=== PATIENT | female | born 1990 | race Caucasian/White ===

== ENCOUNTER → 2018-06-11 | Outpatient (CLI) | payer MEDICARE, MEDICAID ==
[~2018-06-11] MED LIST: ACET-2146 PO; CALC1TAB24 PO; CETI-169 PO; CHOL400C10 PO; GUAI-244 PO; HYDR-653 PO; IBUP-56 PO; NAPR220T86 PO; OXYM30MI5 NS
--- NOTE | 2018-06-11 12:52 | RADIOLOGY IMAGING REPORT ---
FACILITY: [facility] [place] PATIENT NAME: Abigail Wray : 1990 MR: [id number] V: [id number] EXAM DATE: ORDERING PHYSICIAN: GERRY JENSEN TECHNOLOGIST: Location: [facility] Patient: Abigail Wray : 1990 Visit/Account:[id number] Date of Sevice: 06/11/2018 BONE MINERAL DENSITY DEXA Scan Clinical history: Osteopenia. Comparison: DEXA scan from 06/10/2016. LUMBAR SPINE: The bone mineral density (BMD) measured from L1-L4 correlates with a Z-score -1.1 and a T-score of - 1.6 which is osteopenia as defined by the World Health Organization. The corresponding risk of fract ure in the lumbar spine is increased over 3 times compared with a young adult reference population. This value has improved by 2.6 % since the prior study. More than 5% change is considered significan t. HIP: Bone mineral density (BMD) measured in the Left total hip region correlates with a Z-score 1.1 and a T-score of -1.6 which is osteopenia as defined by the World Health Organization. The corresponding r isk of fracture in the hip is increased over 3 times compared with a young adult reference population . This value has improved by 0.9 % since the prior study. More than 5% change is considered signific ant. Bone mineral density (BMD) measured in the Femoral Neck region measures 0.834 g/cm2. T score -1.5. Os teopenia. Fracture risk increased 3 times IMPRESSION: 1. Lumbar spine: Osteopenia. There has been improvement in the bone mineral density since the previ ous exam. 2. Left Total Hip: Osteopenia. There has been slight improvement in the bone mineral density since the previous exam. 3. Femoral Neck: Bone Mineral Density is 0.834 g/cm2. Osteopenia The next DEXA scan of this patient should include the following sites: L1-L4 and the left hip. FRAX? WHO Fracture Risk Assessment Tool link: <http://www.shef.ac.uk/FRAX/tool.jsp?[email or web address]> PLEASE NOTE: 1) The World Health Organization defines low BMD as follows: T-score Normal > -1 Osteopenia < -1 and > -2.5 Osteoporosis < -2.5 without fractures Established osteoporosis < -2.5 with fractures 2) In general, you may wish to consider: Diagnosis Treatment Follow-up DEXA Normal BMD Prevention 2-3 years Osteopenia Prevention/therapy 1-2 years Osteoporosis Therapy Yearly 3) Fracture risk estimated from the T-score is more accurate for vertebral fractures (often spontane ous) than for hip fractures. Report Dictated By: Cristian Wright MD at 06/11/2018 12:44 PM Report E-Signed By: Cristian Wright MD at 06/11/2018 12:48 PM WSN:[id number]
== END ==
LOC: RAD 02:14
PROVIDERS: ATTEND Nurse Practitioner Family
DX: M85.89 Other specified disorders of bone density and structure, multiple sites (principal)
CPT/HCPCS: 77080